=== PATIENT | female | born 1950 | race Caucasian/White ===

== ENCOUNTER → 2019-08-15 | Outpatient (CLI) | payer MEDICARE, OTHER ==
--- NOTE | 2019-08-16 12:25 | MM ---
Reason for exam: screening (asymptomatic). Last mammogram was performed 4 years ago. History: Patient is postmenopausal. Physical Findings: A clinical breast exam by your physician is recommended on an annual basis and results should be correlated with mammographic findings. MG Screening Mammo w CAD Bilateral CC and MLO view(s) were taken. Prior study comparison: August 19, 2015, bilateral MG screening mammo w CAD. February 26, 2009, bilateral digital screening mammogram. The breast tissue is heterogeneously dense. This may lower the sensitivity of mammography. Finding: There is a 7 mm equal density (isodense), partially obscured oval mass located 8 cm from the nipple in the lower inner quadrant of the left breast. New finding since August 19, 2015 and February 26, 2009. ASSESSMENT: Incomplete: need additional imaging evaluation, BI-RAD 0 RECOMMENDATION: Ultrasound of the left breast. (lower inner quadrant) [facility] will attempt to contact patient to return for ultrasound.
== END | disposition home or self-care (01) ==
LOC: RADMAMWWP 12:54
PROVIDERS: ATTEND Family Medicine
DX: Z12.31 Encounter for screening mammogram for malignant neoplasm of breast (principal)
CPT/HCPCS: 77067

== ENCOUNTER → 2019-09-06 | Outpatient (CLI) | payer MEDICARE, OTHER ==
--- NOTE | 2019-09-06 14:54 | USB ---
Reason for exam: additional evaluation requested from abnormal screening. History: Patient is postmenopausal. Physical Findings: Nurse Summary: 11 o'clock at [place] 2 o'clock, deep, nodule (nurse kp). US Breast Workup Limited LT Left limited breast ultrasound including focal area of concern, retroareolar and axilla demonstrates a 1.0 x 0.5 x 0.9cm oval, cystic lesion at 7 o'clock. Scanned two BB area's, nothing seen. Ductal ectasia noted. These results were verbally communicated with the patient and result sheet given to the patient on 09/06/19. ASSESSMENT: Benign, BI-RAD 2 RECOMMENDATION: Return to routine screening mammogram schedule for both breasts. Manage patient on a clinical basis.
== END | disposition home or self-care (01) ==
LOC: RADUSWWP 13:59
PROVIDERS: ATTEND Family Medicine
DX: R92.8 Other abnormal and inconclusive findings on diagnostic imaging of breast (principal)

== ENCOUNTER 2019-12-15 15:44 | Observation (INO) | payer MEDICARE, OTHER ==
[2019-12-15] MEDS ORDERED: NITROGLYCERIN OINT 1 INCH/GM PACKET TOPICAL STA (15:54)
[2019-12-15] MEDS ORDERED: ASPIRIN 81 MG PO STA (15:54)
--- NOTE | 2019-12-15 15:56 | ED ---
General Adult HPI - General Chief complaint: Chest Pain Stated complaint: Chest Pain Time Seen by Provider: 12/15/19 15:45 Source: patient, RN notes reviewed Mode of arrival: EMS Limitations: no limitations - History of Present Illness Initial comments: Patient is a pleasant 69-year-old female presenting to the emergency Department with complaints of chest discomfort. Onset of symptoms was less than a half hour ago. Discomfort was severe however now is resolved. Patient took 2 nitroglycerin. Patient did have some relief after the second one. No associated nausea. Patient did have some mild shortness of breath and sweating. Discomfort was pressure and did radiate towards the back and left arm. Patient does have history of similar symptoms previously associated with heart attack. - Related Data Home Medications Medication Instructions Recorded Confirmed Aspirin 81 mg PO DAILY 12/15/19 12/15/19 Furosemide [Lasix] 40 mg PO DAILY 12/15/19 12/15/19 Lisinopril [Zestril] 10 mg PO DAILY 12/15/19 12/15/19 Metoprolol Tartrate 25 mg PO BID 12/15/19 12/15/19 Nitroglycerin Sl Tabs [Nitrostat] 0.4 mg SUBLINGUAL Q5M PRN 12/15/19 12/15/19 Pravastatin Sodium [Pravachol] 20 mg PO HS 12/15/19 12/15/19 Allergies Allergy/AdvReac Type Severity Reaction Status Date / Time No Known Allergies Allergy Verified 12/15/19 16:17 Review of Systems ROS Statement: Those systems with pertinent positive or pertinent negative responses have been documented in the HPI. ROS Other: All systems not noted in ROS Statement are negative. Constitutional: Denies: fever Eyes: Denies: eye pain ENT: Denies: ear pain Respiratory: Reports: dyspnea. Denies: cough Cardiovascular: Reports: chest pain Endocrine: Denies: fatigue Gastrointestinal: Denies: abdominal pain, nausea Genitourinary: Denies: dysuria Musculoskeletal: Denies: back pain Skin: Denies: rash Neurological: Denies: weakness Past Medical History Past Medical History: Asthma, Coronary Artery Disease (CAD), Heart Failure, COPD, Hyperlipidemia, Hypertension History of Any Multi-Drug Resistant Organisms: None Reported Past Surgical History: Orthopedic Surgery Past Anesthesia/Blood Transfusion Reactions: No Reported Reaction Past Psychological History: No Psychological Hx Reported Smoking Status: Current every day smoker Past Alcohol Use History: None Reported Past Drug Use History: None Reported - Past Family History Mother Family Medical History: Congestive Heart Failure (CHF) Father Family Medical History: Cancer, Congestive Heart Failure (CHF) Additional Family Medical History / Comment(s): bone cancer Brother(s) Family Medical History: Cancer Additional Family Medical History / Comment(s): liver cancer Sister(s) Family Medical History: Cancer Additional Family Medical History / Comment(s): bone cancer General Exam Limitations: no limitations General appearance: alert, in no apparent distress Head exam: Present: normocephalic Eye exam: Present: normal appearance Neck exam: Present: normal inspection Respiratory exam: Present: normal lung sounds bilaterally. Absent: chest wall tenderness Cardiovascular Exam: Present: regular rate, normal rhythm Expanded Peripheral pulses: 2+: Radial (R), Radial (L), Dorsalis Pedis (R), Dorsalis Pedis (L) GI/Abdominal exam: Present: soft. Absent: tenderness Extremities exam: Present: normal inspection. Absent: pedal edema, calf tenderness Neurological exam: Present: alert Psychiatric exam: Present: normal affect, normal mood Skin exam: Present: normal color Course Vital Signs 12/15/19 12/15/19 15:45 16:30 Temperature 98.3 F Pulse Rate 55 L 47 L Respiratory 18 18 Rate Blood Pressure 113/69 101/63 O2 Sat by Pulse 96 100 Oximetry - Reevaluation(s) Reevaluation #1: 12/15/19 16:30 Repeat EKG shows sinus bradycardia 47. NM 186. QRS 152. QTC 496. QTc 438. Normal axis. Left bundle branch block. No acute ST change. EKG Findings - EKG Comments: EKG Findings:: Sinus bradycardia 53. NM 180. QRS 148. QT 474. QTC 444. Normal axis. Left bundle branch block. No acute ST change. Medical Decision Making - Medical Decision Making Patient reevaluated and resting comfortably in bed. Dr. Bear was notified of patient. Patient and family updated. - Lab Data Result diagrams: 12/15/19 15:52 12/15/19 15:52 Lab Results 12/15/19 12/15/19 12/15/19 Range/Units 15:52 15:52 15:52 WBC 6.5 (3.8-10.6) k/uL RBC 4.67 (3.80-5.40) m/uL Hgb 13.4 (11.4-16.0) gm/dL Hct 40.8 (34.0-46.0) % MCV 87.4 (80.0-100.0) fL MCH 28.8 (25.0-35.0) pg MCHC 32.9 (31.0-37.0) g/dL RDW 13.2 (11.5-15.5) % Plt Count 198 (150-450) k/uL Neutrophils % 51 % Lymphocytes % 37 % Monocytes % 4 % Eosinophils % 5 % Basophils % 1 % Neutrophils # 3.3 (1.3-7.7) k/uL Lymphocytes # 2.4 (1.0-4.8) k/uL Monocytes # 0.3 (0-1.0) k/uL Eosinophils # 0.3 (0-0.7) k/uL Basophils # 0.1 (0-0.2) k/uL PT 10.0 (9.0-12.0) sec INR 1.0 (<1.2) APTT 22.9 (22.0-30.0) sec D-Dimer 0.38 (<0.60) mg/L FEU Sodium 135 L (137-145) mmol/L Potassium 4.1 (3.5-5.1) mmol/L Chloride 103 (98-107) mmol/L Carbon Dioxide 25 (22-30) mmol/L Anion Gap 7 mmol/L BUN 20 H (7-17) mg/dL Creatinine 1.17 H (0.52-1.04) mg/dL Est GFR (CKD-EPI)AfAm 55 (>60 ml/min/1.73 sqM) Est GFR (CKD-EPI)NonAf 48 (>60 ml/min/1.73 sqM) Glucose 91 (74-99) mg/dL Calcium 8.8 (8.4-10.2) mg/dL Magnesium 2.1 (1.6-2.3) mg/dL Total Bilirubin 0.5 (0.2-1.3) mg/dL AST 21 (14-36) U/L ALT 19 (4-34) U/L Alkaline Phosphatase 73 (38-126) U/L Troponin I (0.000-0.034) ng/mL Total Protein 6.4 (6.3-8.2) g/dL Albumin 4.0 (3.5-5.0) g/dL 12/15/19 Range/Units 15:52 WBC (3.8-10.6) k/uL RBC (3.80-5.40) m/uL Hgb (11.4-16.0) gm/dL Hct (34.0-46.0) % MCV (80.0-100.0) fL MCH (25.0-35.0) pg MCHC (31.0-37.0) g/dL RDW (11.5-15.5) % Plt Count (150-450) k/uL Neutrophils % % Lymphocytes % % Monocytes % % Eosinophils % % Basophils % % Neutrophils # (1.3-7.7) k/uL Lymphocytes # (1.0-4.8) k/uL Monocytes # (0-1.0) k/uL Eosinophils # (0-0.7) k/uL Basophils # (0-0.2) k/uL PT (9.0-12.0) sec INR (<1.2) APTT (22.0-30.0) sec D-Dimer (<0.60) mg/L FEU Sodium (137-145) mmol/L Potassium (3.5-5.1) mmol/L Chloride (98-107) mmol/L Carbon Dioxide (22-30) mmol/L Anion Gap mmol/L BUN (7-17) mg/dL Creatinine (0.52-1.04) mg/dL Est GFR (CKD-EPI)AfAm (>60 ml/min/1.73 sqM) Est GFR (CKD-EPI)NonAf (>60 ml/min/1.73 sqM) Glucose (74-99) mg/dL Calcium (8.4-10.2) mg/dL Magnesium (1.6-2.3) mg/dL Total Bilirubin (0.2-1.3) mg/dL AST (14-36) U/L ALT (4-34) U/L Alkaline Phosphatase (38-126) U/L Troponin I <0.012 (0.000-0.034) ng/mL Total Protein (6.3-8.2) g/dL Albumin (3.5-5.0) g/dL - Radiology Data Radiology results: image reviewed (Chest x-ray shows no acute process) Disposition Clinical Impression: Chest pain Disposition: ADMITTED IP TO THIS HOSP Is patient prescribed a controlled substance at d/c from ED?: No Referrals: Nadeem Bear MD [Primary Care Provider] - 1-2 days Decision Time: 17:18
[2019-12-15 16:09] LABS: Basophils # (A) 0.1 k/uL (0-0.2); Basophils % (A) 1 %; Eosinophils # (A) 0.3 k/uL (0-0.7); Eosinophils % (A) 5 %; HCT 40.8 % (34.0-46.0); HGB 13.4 gm/dL (11.4-16.0); Lymphocytes # (A) 2.4 k/uL (1.0-4.8); Lymphocytes % (A) 37 %; MCH 28.8 pg (25.0-35.0); MCHC 32.9 g/dL (31.0-37.0); MCV 87.4 fL (80.0-100.0); Mean Platelet Volume 8.1; Monocytes # (A) 0.3 k/uL (0-1.0); Monocytes % (A) 4 %; Neutrophils # (A) 3.3 k/uL (1.3-7.7); Neutrophils % (A) 51 %; Platelet Count 198 k/uL (150-450); RBC 4.67 m/uL (3.80-5.40); RDW 13.2 % (11.5-15.5); WBC 6.5 k/uL (3.8-10.6)
--- NOTE | 2019-12-15 16:11 | XR ---
EXAMINATION TYPE: XR chest 2V DATE OF EXAM: 12/15/2019 COMPARISON: 02/29/2016 HISTORY: Chest pain TECHNIQUE: FINDINGS: There is no heart failure nor confluent pneumonic infiltrate. Costophrenic angles are clear . There are chest leads. Heart size is normal. Bony thorax is intact. IMPRESSION: No active cardiopulmonary disease. No adverse change.
[2019-12-15 16:23] LABS: Calcium 8.8 mg/dL (8.4-10.2); Magnesium 2.1 mg/dL (1.6-2.3); Potassium 4.1 mmol/L (3.5-5.1); Total Bilirubin 0.5 mg/dL (0.2-1.3); Total Protein 6.4 g/dL (6.3-8.2)
[2019-12-15 16:36] LABS: D-Dimer 0.38 mg/L FEU (<0.60); Partial Thromboplastin Time 22.9 sec (22.0-30.0)
[2019-12-15] MEDS ORDERED: NITROGLYCERIN SL TABS 0.4 MG TAB SUBLINGUAL PRN ×2 (17:18→18:08)
[2019-12-15 17:58] VITALS: BP 150/72; RESP 18; TEMP 97.5
[2019-12-15 18:22] VITALS: PULSE 59
[2019-12-15] MEDS ORDERED: PRAVASTATIN SODIUM 20 MG TAB PO SCH (21:00)
[2019-12-15] MEDS ORDERED: METOPROLOL TARTRATE 25 MG TAB PO SCH (21:00)
[2019-12-15] MEDS ORDERED: NITROGLYCERIN OINT 1 INCH/GM PACKET TOPICAL SCH (22:00)
[2019-12-16] MEDS ORDERED: ASPIRIN 81 MG PO SCH (09:00)
[2019-12-16] MEDS ORDERED: ASPIRIN 325 MG TAB PO SCH (09:00)
[2019-12-16] MEDS ORDERED: FUROSEMIDE 40 MG TAB PO SCH (09:00)
[2019-12-16] MEDS ORDERED: LISINOPRIL 10 MG TAB PO SCH (09:00)
== END 2019-12-15 21:28 | disposition left against medical advice (07) ==
LOC: EC 15:44 → 1SOBS 17:18
PROVIDERS: ADMIT Family Medicine; ATTEND Family Medicine
DX: R07.9 Chest pain, unspecified (principal); E78.5 Hyperlipidemia, unspecified; F17.200 Nicotine dependence, unspecified, uncomplicated; I11.0 Hypertensive heart disease with heart failure; I25.10 Atherosclerotic heart disease of native coronary artery without angina pectoris; I25.2 Old myocardial infarction; I50.9 Heart failure, unspecified; J44.9 Chronic obstructive pulmonary disease, unspecified; Z79.82 Long term (current) use of aspirin; Z80.0 Family history of malignant neoplasm of digestive organs; Z82.49 Family history of ischemic heart disease and other diseases of the circulatory system; R06.02 Shortness of breath; R61 Generalized hyperhidrosis; Z79.899 Other long term (current) drug therapy
CPT/HCPCS: 99285; 36415; 93005; 85379; 80053; 83735; 84484; 85025; 85610; 85730; 71046; G0378

== ENCOUNTER 2021-05-17 23:57 | Emergency (ER) | payer MEDICARE, OTHER ==
[2021-05-18 00:09] VITALS: TEMP 98.4
[2021-05-18] MEDS ORDERED: DIPH,PERTUS(ACELL)TETVAC-LF 0.5 ML VIAL IM ONE (00:57)
--- NOTE | 2021-05-18 00:59 | ED ---
Head Injury HPI - General Chief complaint: Head Injury Stated complaint: Head Injury Time Seen by Provider: 05/18/21 00:24 Source: patient Mode of arrival: ambulatory Limitations: no limitations - History of Present Illness Initial comments: 70-year-old female presents to emergency Department with a chief complaint of head injury. This occurred about one hour prior to arrival. Patient reports a shelf fell on her head. Now she reports a hematoma on the left frontal region of the head. She reports small bleeding which is hence resolved. Tetanus not up-to-date. Denies any loss of consciousness. Denies any blood thinners but she is currently on antiplatelet therapy with aspirin. She denies any nausea or vomiting headaches blurry vision one-sided weakness or paresthesias. - Related Data Home Medications Medication Instructions Recorded Confirmed Aspirin 81 mg PO DAILY 12/15/19 12/15/19 Furosemide [Lasix] 40 mg PO DAILY 12/15/19 12/15/19 Lisinopril [Zestril] 10 mg PO DAILY 12/15/19 12/15/19 Metoprolol Tartrate 25 mg PO BID 12/15/19 12/15/19 Nitroglycerin Sl Tabs [Nitrostat] 0.4 mg SUBLINGUAL Q5M PRN 12/15/19 12/15/19 Pravastatin Sodium [Pravachol] 20 mg PO HS 12/15/19 12/15/19 Allergies/Adverse reactions: Allergies Allergy/AdvReac Type Severity Reaction Status Date / Time No Known Allergies Allergy Verified 05/18/21 00:06 Review of Systems ROS Statement: Those systems with pertinent positive or pertinent negative responses have been documented in the HPI. ROS Other: All systems not noted in ROS Statement are negative. Past Medical History Past Medical History: Asthma, Coronary Artery Disease (CAD), Heart Failure, COPD, Hyperlipidemia, Hypertension History of Any Multi-Drug Resistant Organisms: None Reported Past Surgical History: Orthopedic Surgery Additional Past Surgical History / Comment(s): left elbow fracture, left wrist fracture with surgery Past Anesthesia/Blood Transfusion Reactions: No Reported Reaction Past Psychological History: No Psychological Hx Reported Smoking Status: Current some day smoker Past Alcohol Use History: None Reported Past Drug Use History: None Reported - Past Family History Mother Family Medical History: Congestive Heart Failure (CHF) Father Family Medical History: Cancer, Congestive Heart Failure (CHF) Additional Family Medical History / Comment(s): bone cancer Brother(s) Family Medical History: Cancer Additional Family Medical History / Comment(s): liver cancer Sister(s) Family Medical History: Cancer Additional Family Medical History / Comment(s): bone cancer General Exam Limitations: no limitations General appearance: alert, in no apparent distress Head exam: Present: atraumatic, normocephalic. Absent: normal inspection (Hematoma on the left frontal region of the head. Mild abrasion.), other (Negative Jefferson sign, raccoon eyes, hemotympanum.) Eye exam: Present: normal appearance, PERRL, EOMI Pupils: Present: normal accommodation ENT exam: Present: normal exam, normal oropharynx, mucous membranes moist, TM's normal bilaterally, normal external ear exam Neck exam: Present: normal inspection, full ROM. Absent: tenderness, lymphadenopathy Respiratory exam: Present: normal lung sounds bilaterally. Absent: respiratory distress, wheezes, rales Cardiovascular Exam: Present: regular rate, normal rhythm, normal heart sounds. Absent: systolic murmur Extremities exam: Present: normal inspection, full ROM. Absent: tenderness Back exam: Present: normal inspection, full ROM Neurological exam: Present: alert, oriented X3 Psychiatric exam: Present: normal affect, normal mood Skin exam: Present: warm, dry, intact, normal color Course Vital Signs 05/18/21 05/18/21 00:06 01:30 Temperature 98.4 F Pulse Rate 66 71 Respiratory 15 16 Rate Blood Pressure 155/84 142/80 O2 Sat by Pulse 97 98 Oximetry Medical Decision Making - Medical Decision Making 70-year-old female presents to emergency Department with a chief complaint of head injury. On physical examination, patient is a small scalp hematoma on the left frontal region of the head. She is otherwise neurovascularly intact. No focal deficits. CT of the brain and C-spine shows no acute findings. Tetanus was updated. Patient was to continue apply ice compress. Return parameters discussed the patient is understanding and agreeable. Case discussed with physician. Disposition Clinical Impression: Hematoma of scalp, Head injury Disposition: HOME SELF-CARE Condition: Stable Instructions (If sedation given, give patient instructions): Hematoma (ED) Additional Instructions: Please return to the Emergency Department if symptoms worsen or any other concerns. Is patient prescribed a controlled substance at d/c from ED?: No Referrals: Nadeem Bear MD [Primary Care Provider] - 1-2 days Time of Disposition: 01:34
--- NOTE | 2021-05-18 01:27 | CT ---
EXAMINATION TYPE: CT brain juan robledo DATE OF EXAM: 05/18/2021 COMPARISON: None HISTORY: Hit in the head with a shelf. pain and bruising CT DLP: 1267 mGycm Automated exposure control for dose reduction was used. Images of the brain and cervical spine obtained without contrast. The ventricles have normal size. There is no mass effect nor midline shift. There is no sign of intra cranial hemorrhage. There is patchy white matter hypodensity in both frontal lobes and the left poste rior parietal lobe. There is left frontal scalp hematoma measuring up to 1 cm in thickness. The jewel rium is intact. The skull base is intact. There is normal aeration of the mastoid sinuses. There is some straightening of the cervical spine. There is apparent old anterior fusion surgery at C 5-6. There is degenerative spur formation from C4 to C7. Posterior elements are intact. There is no c ompression fracture. Occipital bone is intact. IMPRESSION: Spondylotic changes in the cervical spine. No fracture. Previous surgery. Cerebral atrophy and White matter changes consistent with chronic small vessel ischemia. 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 Left frontal scalp hematoma.
[2021-05-18 01:31] VITALS: BP 142/80; PULSE 71; RESP 16
== END 2021-05-18 01:42 | disposition home or self-care (01) ==
LOC: EC 23:57
DX: S00.03XA Contusion of scalp, initial encounter (principal); W20.8XXA Other cause of strike by thrown, projected or falling object, initial encounter; E78.5 Hyperlipidemia, unspecified; F17.200 Nicotine dependence, unspecified, uncomplicated; I11.0 Hypertensive heart disease with heart failure; I25.10 Atherosclerotic heart disease of native coronary artery without angina pectoris; I50.9 Heart failure, unspecified; J44.9 Chronic obstructive pulmonary disease, unspecified; Z79.82 Long term (current) use of aspirin; Z23 Encounter for immunization
CPT/HCPCS: 70450; 72125; 90471; 90715; 99284